=== PATIENT | male | born 1960 | race Caucasian/White ===

== ENCOUNTER 2020-10-08 10:37 | Emergency (ER) | payer BC, MEDICAID ==
[~2020-10-08] VITALS: Ht 177.8 cm; Wt 79.4 kg
[~2020-10-08 10:37] MED LIST: ATROPINE SULFATE 1 MG/10 ML DISP.SYRIN ONE; EPINEPHRINE 1:10,000 1 MG/10 ML DISP.SYRIN ONE; SODIUM BICARBONATE 8.4% 50 MEQ/50 ML DISP.SYRIN IV ONE
--- NOTE | 2020-10-08 10:37 | NUR ---
Please reffer to Code [facility] flow sheet for futher details.
--- NOTE | 2020-10-08 10:37 | NUR ---
Arrived to ER in response to [facility] that was called. CPR initiated. Assisted Dr. Singh @ bedside with intubation. ETT 7.5 @ approx 23cm At the lip. Patient transferred out via [facility] to another hospital.
--- NOTE | 2020-10-08 10:37 | NUR ---
1034.. Pt BIB [facility] 83 in full cardiac/respiratory arrest. Dr Singh at the bedside. [facility] called.
--- NOTE | 2020-10-08 11:13 | NUR ---
Pt transfered by paramedics to [facility] due to ST elevation AL.
== END 2020-10-08 11:40 | disposition short-term general hospital (02) ==
LOC: ER 10:37
DX: I46.9 Cardiac arrest, cause unspecified (principal); I49.01 Ventricular fibrillation; I21.3 ST elevation (STEMI) myocardial infarction of unspecified site
CPT/HCPCS: 31500; 92950; 93005; 99285; J0171; J0461; J3490; A4663